=== PATIENT | female | born 1995 | race Caucasian/White ===

== ENCOUNTER 2023-09-10 20:18 | Emergency (ER) | payer MEDICAID ==
[~2023-09-10] VITALS: Ht 162.6 cm; Wt 80.0 kg
[2023-09-10 20:21] VITALS: BP 112/72; PULSE 94; RESP 18; TEMP 97.9; O2SAT 100
[2023-09-10 22:59] LABS: BASOPHILS % 0.2 % (0.0-2.0); EOSINOPHILS % 0.4 % (0.0-5.0); HEMATOCRIT. 39.6 % (36.0-48.0); HEMOGLOBIN. 13.3 g/dL (12.0-16.0); LYMPHOCYTES % 13.2 % (20.0-50.0); MEAN CORPUSCULAR HEMOGLOBIN 33.1 pg (28.0-32.0); MEAN CORPUSCULAR HGB CONC 33.6 g/dL (31.0-37.0); MEAN CORPUSCULAR VOLUME 98.4 fL (81.0-99.0); MEAN PLATELET VOLUME 8.7 fl (7.4-10.4); MONOCYTES % 3.8 % (2.0-8.0); NEUTROPHILS % 82.4 % (40.0-76.0); PLATELET 326 x1000/uL (130-400); RED BLOOD CELL COUNT 4.02 mill/uL (4.2-5.4); RED CELL DISTRIBUTION WIDTH 12.9 % (11.6-14.6); WHITE BLOOD COUNT 12.9 x1000/uL (4.5-11.0)
[2023-09-10 23:09] LABS: HCG SCREEN NEGATIVE
[2023-09-10 23:11] LABS: ALANINE AMINOTRANSFERASE 80 IU/L (10-49); ALBUMIN 4.5 g/dL (3.2-4.8); ASPARTATE AMINOTRANSFERASE 32 IU/L (<34); BILIRUBIN TOTAL 0.3 mg/dL (0.1-1.0); CALCIUM 10.5 mg/dL (8.7-10.4); CARBON DIOXIDE 25 mEq/L (21-32); CHLORIDE 106 mEq/L (98-107); CREATININE 0.6 mg/dL (0.6-1.0); GLUCOSE 97 mg/dL (70-105); POTASSIUM 3.8 mEq/L (3.5-5.1); PROTEIN TOTAL 7.5 g/dL (6.0-8.3); SODIUM 140 mEq/L (136-145); UREA NITROGEN BLOOD 11 mg/dL (9-23)
[2023-09-10 23:12] LABS: TROPONIN I HIGH SENSITIVITY < 4 ng/L (3.0-34)
[2023-09-11 00:26] LABS: CLARITY URINE TURBID (CLEAR); COLOR URINE ORANGE (YELLOW); GLUCOSE URINE NEGATIVE (NEGATIVE); KETONES URINE TRACE (NEGATIVE); LEUKOCYTE ESTERASE URINE 2+ (NEGATIVE); NITRITE URINE NEGATIVE (NEGATIVE); OCCULT BLOOD URINE 3+ (NEGATIVE); PH URINE 5.5 (4.5-8.0); PROTEIN URINE 2+ (NEGATIVE); SPECIFIC GRAVITY URINE 1.041 (1.005-1.030)
[2023-09-11 00:44] LABS: WBC URINE TNTC /hpf (0-2)
[2023-09-11 00:45] LABS: BACTERIA URINE 2+; CALCIUM OXALATE CRYSTALS URINE 1+ /lpf; SQUAMOUS EPITHELIAL CELL URINE 1+ /lpf (RARE/1+)
[2023-09-11] MEDS ORDERED: CEPH500C2 MT (01:04)
== END 2023-09-11 01:24 | disposition home or self-care (01) ==
LOC: ER 20:18
DX: R53.1 Weakness (principal); R82.71 Bacteriuria
CPT/HCPCS: 36415; 71045; 80053; 81003; 84484; 84703; 85025; 87077; 93005; 99285